=== PATIENT | male | born 1980 | race Caucasian/White ===

== ENCOUNTER 2016-09-24 17:18 | Inpatient (IN) | payer SELFPAY ==
[~2016-09-24 17:18] MED LIST: FAMOTIDINE40 MG PO; KEFLEX500 M4 PO; METOCLOPRAMIDE10 MG PO; NO HOME MEDICATION XX; THORAZINE25 MG PO; THORAZINE50 MG PO; XANAX1 MG
[2016-09-24 20:43] LABS: BASO % 0.3 % (0-2); EOS % 0.5 % (0-7); HCT-HEMATOCRIT 39.9 % (36.0-53.5); HGB-HEMOGLOBIN 13.7 gm/dl (13.5-17.0); IMMATURE GRANULOCYTES ABSOLUTE 0.02 tho/cmm (0-0.03); IMMATURE GRANULOCYTES PERCENT 0.3 % (0-0.3); LYMPH % 18.3 % (20-45); LYMPH ABSOLUTE COUNT 1.5 tho/cmm (0.8-4.5); MCH (MEAN CORPUSCULAR HGB) 29.1 pg (28.0-32.0); MCHC MEAN CORPUSCULAR HGB CONC 34.3 % (32.0-36.0); MCV (MEAN CELL VOLUME) 84.7 fl (82.0-96.0); MEAN PLATELET VOLUME 9.4 cmc (9.4-12.4); MONO % 10.1 % (0-12); MONOCYTE ABSOLUTE COUNT 0.8 tho/cmm (0.0-1.2); NEUTROPHIL ABSOLUTE COUNT 5.6 tho/cmm (1.6-8.0); NEUTROPHIL-AUTOMATED 5.6 tho/cmm (1.6-8.0); NEUTROPHILS % 70.5 % (40-80); PLATELET COUNT 230 tho/cmm (150-450); RED BLOOD COUNT 4.71 mil/cmm (4.40-5.70); RED CELL DISTRIBUTION WIDTH 12.7 % (12.4-16.4)
[2016-09-24 20:51] LABS: PROTHROMBIN TIME 11.9 SECONDS (9.0-13.6)
[2016-09-24 21:05] LABS: ANION GAP 11 mmol/L (0-20); BLOOD UREA NITROGEN 6 mg/dl (6-24); CALCIUM 8.6 mg/dl (8.5-10.5); CARBON DIOXIDE-VENOUS 30 mmol/L (22-32); CHLORIDE 102 mmol/l (96-110); CREATININE 0.76 mg/dl (0.60-1.30); GLUCOSE 86 mg/dL (70-110); POTASSIUM 3.6 mmol/L (3.7-5.1); SODIUM 139 mmol/L (135-145); eGFR VALUE FOR BLACK >90 mL/Min
[2016-09-24 21:16] LABS: CREATINE PHOSPHOKINASE (CPK) 99 U/L (35-232)
[2016-09-24 21:18] LABS: PROCALCITONIN <0.05 ng/ml (0.05-0.09)
[2016-09-25 05:34] LABS: BASO % 0.2 % (0-2); EOS % 0.7 % (0-7); EOSINOPHIL ABSOLUTE COUNT 0.1 tho/cmm (0.0-0.7); HCT-HEMATOCRIT 39.4 % (36.0-53.5); HGB-HEMOGLOBIN 13.1 gm/dl (13.5-17.0); IMMATURE GRANULOCYTES ABSOLUTE 0.01 tho/cmm (0-0.03); IMMATURE GRANULOCYTES PERCENT 0.1 % (0-0.3); LYMPH % 17.2 % (20-45); LYMPH ABSOLUTE COUNT 1.4 tho/cmm (0.8-4.5); MCH (MEAN CORPUSCULAR HGB) 28.2 pg (28.0-32.0); MCHC MEAN CORPUSCULAR HGB CONC 33.2 % (32.0-36.0); MCV (MEAN CELL VOLUME) 84.9 fl (82.0-96.0); MEAN PLATELET VOLUME 9.4 cmc (9.4-12.4); MONO % 11.1 % (0-12); MONOCYTE ABSOLUTE COUNT 0.9 tho/cmm (0.0-1.2); NEUTROPHIL ABSOLUTE COUNT 5.8 tho/cmm (1.6-8.0); NEUTROPHIL-AUTOMATED 5.8 tho/cmm (1.6-8.0); NEUTROPHILS % 70.7 % (40-80); PLATELET COUNT 226 tho/cmm (150-450); RED BLOOD COUNT 4.64 mil/cmm (4.40-5.70); RED CELL DISTRIBUTION WIDTH 12.9 % (12.4-16.4); WHITE BLOOD COUNT 8.2 tho/cmm (4.0-10.0)
[2016-09-25 06:13] LABS: ANION GAP 11 mmol/L (0-20); BLOOD UREA NITROGEN 8 mg/dl (6-24); CALCIUM 8.2 mg/dl (8.5-10.5); CARBON DIOXIDE-VENOUS 26 mmol/L (22-32); CHLORIDE 108 mmol/l (96-110); GLUCOSE 106 mg/dL (70-110); POTASSIUM 3.7 mmol/L (3.7-5.1); SODIUM 141 mmol/L (135-145)
[2016-09-25 06:14] LABS: CREATININE 0.78 mg/dl (0.60-1.30); eGFR VALUE FOR BLACK >90 mL/Min
--- NOTE | 2016-09-25 21:20 | NUR ---
VIRTUAL CARE NOTE: ASSESSMENT DEFFERRED. PT. SLEEPING.
[2016-09-26 05:54] LABS: BASO % 0.1 % (0-2); HCT-HEMATOCRIT 39.5 % (36.0-53.5); HGB-HEMOGLOBIN 13.4 gm/dl (13.5-17.0); IMMATURE GRANULOCYTES ABSOLUTE 0.01 tho/cmm (0-0.03); IMMATURE GRANULOCYTES PERCENT 0.1 % (0-0.3); LYMPH % 7.5 % (20-45); LYMPH ABSOLUTE COUNT 0.9 tho/cmm (0.8-4.5); MCH (MEAN CORPUSCULAR HGB) 28.5 pg (28.0-32.0); MCHC MEAN CORPUSCULAR HGB CONC 33.9 % (32.0-36.0); MEAN PLATELET VOLUME 9.5 cmc (9.4-12.4); MONO % 8.2 % (0-12); MONOCYTE ABSOLUTE COUNT 0.9 tho/cmm (0.0-1.2); NEUTROPHIL ABSOLUTE COUNT 9.6 tho/cmm (1.6-8.0); NEUTROPHIL-AUTOMATED 9.6 tho/cmm (1.6-8.0); NEUTROPHILS % 84.1 % (40-80); PLATELET COUNT 299 tho/cmm (150-450); RED CELL DISTRIBUTION WIDTH 12.7 % (12.4-16.4); WHITE BLOOD COUNT 11.4 tho/cmm (4.0-10.0)
[2016-09-26 19:12] LABS: ANION GAP 11 mmol/L (0-20); BLOOD UREA NITROGEN 11 mg/dl (6-24); CALCIUM 8.4 mg/dl (8.5-10.5); CARBON DIOXIDE-VENOUS 26 mmol/L (22-32); CHLORIDE 109 mmol/l (96-110); CREATININE 0.65 mg/dl (0.60-1.30); GLUCOSE 120 mg/dL (70-110); POTASSIUM 4.3 mmol/L (3.7-5.1); SODIUM 142 mmol/L (135-145); eGFR VALUE FOR BLACK >90 mL/Min
--- NOTE | 2016-09-26 20:59 | NUR ---
VIRTUAL CARE NOTE: ASSESSMENT DEFFERED. ATTEMPTED TO ROUND SEVERAL TIMES. PT SLEEPING. WILL CONTINUE WITH CHART REVIEW.
--- NOTE | 2016-09-27 05:29 | NUR ---
LAB CALLED, SAYING DRAW FROM [facility] WAS HEMOLYZED AND POTASSIUM WAS WAY OFF. I ASKED TO HAVE THEM SEND THE CHART WRITER TO GET AN ACCURATE SAMPLE. SHE V/U.
[2016-09-27] MEDS ORDERED: AUGMENTIN 875-1 EAC2 PO (12:25)
[2016-09-27] MEDS ORDERED: DOXYCYCLINE HY100 M3 PO (12:26)
[2016-09-27] MEDS ORDERED: PERCOCET 5-3251 EACH PO (12:26)
[2016-09-27] MEDS ORDERED: SULFAMYLON SOL250 M1 EXT (12:27)
== END 2016-09-27 13:50 | DRG 581 ==
LOC: EDMED 17:18 → EMR2 20:49 → 5WD 23:28 → ORE 09-25 11:56 → PACU 09-25 13:09 → 5WD 09-25 14:10
PROVIDERS: Emergency Medicine; Family Medicine; Internal Medicine; ADMIT Hospitalist
PROC: 05H533Z Insertion of Infusion Device into Right Subclavian Vein, Percutaneous Approach (ICD-10-PCS; 2016-09-24)
PROC: 0J9H0ZZ Drainage of Left Lower Arm Subcutaneous Tissue and Fascia, Open Approach (ICD-10-PCS; principal; 2016-09-25)
DX: L02.414 Cutaneous abscess of left upper limb (principal); B95.4 Other streptococcus as the cause of diseases classified elsewhere; L03.114 Cellulitis of left upper limb; F11.90 Opioid use, unspecified, uncomplicated
CPT/HCPCS: A9577; C1751; J1170; J1885; J2270; J2543; J3010; J3370; J7030; J7999